=== PATIENT | male | born 1985 | race Caucasian/White ===

== ENCOUNTER 2017-12-12 15:22 | Emergency (ER) | payer SELFPAY ==
[~2017-12-12] VITALS: Ht 177.8 cm; Wt 107.1 kg
[2017-12-12 15:25] VITALS: BP 127/86
--- NOTE | 2017-12-12 15:30 | NUR ---
PT AMBULATES TO BED 10, REPORT GIVEN TO LUDMILA FLORES
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
--- NOTE | 2017-12-12 15:32 | NUR ---
Patient being evaluated by physician at bedside.
[2017-12-12] MEDS ORDERED: SILVER SULFADIAZINE 1% 50 GM JAR TP ONE ×2 (15:39→15:40)
[2017-12-12] MEDS ORDERED: KETOROLAC 60 MG/2 ML VIAL IM ONE (15:40)
--- NOTE | 2017-12-12 15:45 | NUR ---
WOUND CARE DONE BY EMT
--- NOTE | 2017-12-12 16:16 | NUR ---
Patient discharged with v/s stable. Written and verbal after care instructions given and explained. Patient alert, oriented and verbalized understanding of instructions. Ambulatory with steady gait. All questions addressed prior to discharge. ID band removed. Patient advised to follow up with PMD. Rx of COLACE, MOTRIN, NORCO given. Patient educated on indication of medication including possible reaction and side effects. Opportunity to ask questions provided and answered.
== END 2017-12-12 16:16 | disposition home or self-care (01) ==
LOC: MED 15:22
DX: T22.212A Burn of second degree of left forearm, initial encounter (principal); X19.XXXA Contact with other heat and hot substances, initial encounter; Y92.89 Other specified places as the place of occurrence of the external cause
CPT/HCPCS: 16020; 96372; 99284; J1885

== ENCOUNTER 2018-10-16 03:53 | Emergency (ER) | payer OTHER ==
[~2018-10-16] VITALS: Ht 177.8 cm; Wt 108.9 kg
--- NOTE | 2018-10-16 04:00 | NUR ---
TO ED 10 VIA WC
[2018-10-16 04:01] VITALS: BP 132/74
[2018-10-16] MEDS ORDERED: KETOROLAC 30 MG/ML VIAL IVP ONE (04:05)
[2018-10-16] MEDS ORDERED: ONDANSETRON 4 MG/2 ML VIAL IVP ONE (04:05)
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
[2018-10-16] MEDS ORDERED: NACL 0.9% 1,000 ML IV ONE (04:10)
--- NOTE | 2018-10-16 04:58 | NUR ---
PT REPORTS PAIN DECREASED AND NO EPISODES OF VOMITTING POST TORADOL AND ZOFRAN ADMIN.
[2018-10-16 05:20] VITALS: BP 131/81
--- NOTE | 2018-10-16 05:20 | NUR ---
Patient discharged with v/s stable. Written and verbal after care instructions given and explained. Patient verbalized understanding. Ambulatory with steady gait. All questions addressed prior to discharge. Advised to follow up with PMD.
== END 2018-10-16 05:20 | disposition home or self-care (01) ==
LOC: MED 03:53
DX: R42 Dizziness and giddiness (principal); T40.7X5A Adverse effect of cannabis (derivatives), initial encounter; R11.0 Nausea; R51 Headache; Y92.89 Other specified places as the place of occurrence of the external cause
CPT/HCPCS: 96361; 96374; 96375; 99283; J1885; J2405; J7030

== ENCOUNTER 2024-03-14 22:44 | Emergency (ER) | payer OTHER ==
[~2024-03-14] VITALS: Ht 180.3 cm; Wt 108.9 kg
[2024-03-14 22:46] VITALS: PULSE 92; RESP 22; TEMP 97.8; O2SAT 97
[2024-03-14 23:05] VITALS: TEMP 97.8
[2024-03-14 23:33] LABS: BASOPHILS # (AUTO) 0.1 K/uL (0.00-0.22); BASOPHILS % (AUTO) 0.8 % (0.0-2.0); EOSINOPHILS # (AUTO) 0.4 K/uL (0-0.4); EOSINOPHILS % (AUTO) 3.3 % (0.0-4.0); HEMATOCRIT 45.3 % (36-52); HEMOGLOBIN 15.8 g/dL (12.0-18.0); LYMPHOCYTES # (AUTO) 4.4 K/uL (2.0-11.5); LYMPHOCYTES % (AUTO) 41.1 % (20.5-51.1); MEAN CORPUSCULAR HEMOGLOBIN 31 pg (27-31); MEAN CORPUSCULAR HGB CONC 35 g/dL (33-37); MEAN CORPUSCULAR VOLUME 87.2 fL (80-94); MONOCYTES # (AUTO) 0.9 K/uL (0.8-1.0); MONOCYTES % (AUTO) 8.1 % (1.7-9.3); NEUTROPHILS % (AUTO) 46.7 % (42.2-75.2); PLATELET COUNT (AUTO) 288 K/uL (140-450); RED BLOOD CELL COUNT(AUTO) 5.19 MIL/uL (4.20-6.10); RED CELL DISTRIBUTION WIDTH 13.6 % (11.6-13.7); WHITE BLOOD COUNT (AUTO) 10.8 K/uL (4.8-10.8)
[2024-03-14 23:40] LABS: ANION GAP 12.8 (8-16); CALCIUM 9.8 mg/dL (8.5-10.1); CARBON DIOXIDE 28.5 mmol/L (21-32); CREATININE 1.2 mg/dL (0.6-1.3); POTASSIUM 3.3 mmol/L (3.5-5.1)
[2024-03-14] MEDS: NACL 0.9% 1,000 ML IV ONE (23:40)
[2024-03-14] MEDS: ONDANSETRON 4 MG/2 ML VIAL IVP ONE (23:41)
[2024-03-14 23:46] LABS: ALBUMIN 4.2 g/dL (3.4-5.0); BILIRUBIN,DIRECT 0.2 mg/dL (0.0-0.3); TOTAL BILIRUBIN 1.3 mg/dL (0.0-1.0); TOTAL PROTEIN, SERUM 8.4 g/dL (6.4-8.2)
[2024-03-14] MEDS: KETOROLAC 30 MG/ML VIAL IVP ONE (23:46)
[2024-03-15 00:59] LABS: APPEARANCE,URINE CLEAR (CLEAR); BILIRUBIN,URINE 1+ (NEGATIVE); BLOOD, URINE 3+ (NEGATIVE); COLOR,URINE YELLOW (YELLOW); LEUKOCYTE ESTERASE ,URINE NEGATIVE (NEGATIVE); NITRITE, URINE NEGATIVE (NEGATIVE); PROTEIN,URINE 1+ (NEGATIVE); UGLUCOSE NEGATIVE (NEGATIVE); UROBILINOGEN,URINE 0.2 EU/dL (0.2 - 1)
[2024-03-15 01:22] LABS: ICTOTEST POSITIVE (NEGATIVE)
[2024-03-15 01:28] LABS: RBC,URINE TOO NUMEROUS TO COUN /HPF (0-5)
[2024-03-15 01:29] LABS: BACTERIA,URINE 10-30 (MOD) /HPF (None Seen); MUCUS,URINE 1+ /LPF (None Seen); SQUAMOUS EPITHELIAL CELL,UR 0-3 (FEW) /LPF (0-3 (FEW)); WBC,URINE 0-5 /HPF (0-5)
[2024-03-15 01:39] VITALS: O2SAT 97
[2024-03-15 02:50] VITALS: BP 120/61; PULSE 80; RESP 18; O2SAT 99
[2024-03-15] MEDS ORDERED: ACET-9525 PO (03:08)
[2024-03-15] MEDS ORDERED: TAMS0.4C96 PO (03:08)
[2024-03-15] MEDS ORDERED: ONDA-188 SL (03:10)
== END 2024-03-15 03:30 | disposition home or self-care (01) ==
LOC: MED 22:44
DX: N20.0 Calculus of kidney (principal); R11.2 Nausea with vomiting, unspecified; K59.00 Constipation, unspecified; Z79.1 Long term (current) use of non-steroidal anti-inflammatories (NSAID); Z79.899 Other long term (current) drug therapy
CPT/HCPCS: 36415; 80048; 80076; 81001; 82150; 83690; 85025; 96361; 96374; 96375; 99284; J1885; J2405; J7030